=== PATIENT | female | born 1985 | race Two or more races ===

== ENCOUNTER → 2016-12-20 | Emergency (ER) | payer OTHER ==
[~2016-12-20] MED LIST: KETOROLAC TROMETHAMINE 60 MG/2 ML VIAL IM ONE; KETOROLAC TROMETHAMINE 60 MG/2 ML VIAL ONE
[2016-12-20 10:02] VITALS: BP 150/86; PULSE 101; TEMP 98.2; BMI 28.9
--- NOTE | 2016-12-20 10:44 | PDOC ---
History of Present Illness - History of Present Illness Initial Comments: 12/20/16 12:14 The patient is a 28 year old male, with a significant past medical history of PE (2 years ago after childbirth), who presents to the emergency department with a 3 month history of pins and needles to right thumb and first finger extending to elbow. She reports movement of her right shoulder, but denies pain with movement of her right elbow. She states shaking the right hand makes the tingling stop for a short period of time. She denies chest pain, shortness of breath, headache and dizziness. She denies fever, chills, nausea, vomit, diarrhea and constipation. She denies dysuria, frequency, urgency and hematuria. Allergies: NKDA <Joleen Garcia - Last Filed: 12/20/16 12:14> <Nirali Triplett - Last Filed: 12/20/16 12:51> - General Chief Complaint: Pain Stated Complaint: RT ARM NUMBNESS/hx PE Time Seen by Provider: 12/20/16 10:33 Past History <Joleen Garcia - Last Filed: 12/20/16 12:14> - Past Medical History Anemia: Yes Other medical history: PE - Immunization History Td Vaccination: No Immunization Up to Date: No - Suicide/Smoking/Psychosocial Hx Smoking History: Never smoked Number of Cigarettes Smoked Daily: 0 Information on smoking cessation initiated: No Hx Alcohol Use: No Drug/Substance Use Hx: No Substance Use Type: None <Nirali Triplett - Last Filed: 12/20/16 12:51> - Past Medical History Allergies/Adverse Reactions: Allergies Allergy/AdvReac Type Severity Reaction Status Date / Time No Known Allergies Allergy Verified 12/20/16 10:02 Home Medications: Ambulatory Orders Methocarbamol [Robaxin -] 500 mg PO TID PRN #30 tablet 12/12/14 Cyclobenzaprine HCl [Flexeril 10 mg] 10 mg PO BID PRN #10 tablet 12/20/16 Naproxen [Naprosyn -] 500 mg PO BID PRN #14 tablet 12/20/16 Review of Systems - Review of Systems Able to Perform ROS?: Yes Comments:: 12/20/16 12:14 GENERAL/CONSTITUTIONAL: No fever or chills. No weakness. HEAD, EYES, EARS, NOSE AND THROAT: No change in vision. No ear pain or discharge. No sore throat. GASTROINTESTINAL: No nausea, vomiting, diarrhea or constipation. GENITOURINARY: No dysuria, frequency, or change in urination. CARDIOVASCULAR: No chest pain or shortness of breath. RESPIRATORY: No cough, wheezing, or hemoptysis. MUSCULOSKELETAL: (+) pins and needles to right hand. No joint or muscle swelling or pain. No neck or back pain. SKIN: No rash NEUROLOGIC: (+) right hand numbness and tingling. No headache, vertigo, loss of consciousness, or change in strength ENDOCRINE: No increased thirst. No abnormal weight change. HEMATOLOGIC/LYMPHATIC: No anemia, easy bleeding, or history of blood clots. ALLERGIC/IMMUNOLOGIC: No hives or skin allergy. <Joleen Garcia - Last Filed: 12/20/16 12:14> *Physical Exam - Vital Signs Last Vital Signs Temp Pulse Resp BP Pulse Ox 98.2 F 101 H 19 150/86 100 12/20/16 10:00 12/20/16 10:00 12/20/16 10:00 12/20/16 10:00 12/20/16 10:00 - Physical Exam Comments: 12/20/16 12:16 Constitutional: Awake, alert, oriented. No acute distress. Head: Normocephalic. Atraumatic Eyes: PERRL. EOMI. Conjunctivae are not pale. ENT: Mucous membranes are moist and intact. Posterior pharynx without exudates or erythema. Uvula midline. Neck: Supple. Full ROM. No lymphadenopathy. Cardiovascular: Regular rate. Regular rhythm. S1, S2 regular. Distal pulses are 2+ and symmetric. Pulmonary/Chest: No evidence of respiratory distress. Clear to auscultation bilaterally No wheezing, rales or rhonchi. Abdominal: Soft and non-distended. There is no tenderness. No rebound, guarding or rigidity. No organomegaly. No palpable masses. Good bowel sounds. Back: No CVA tenderness. Musculoskeletal: (+) Mild ttp over tapping of the radial head of elbow. Finkelsteins Positive but negative phallens. 5/5 MS in all 4 extremities. Negative spurling's. No paraspinal or c spine tenderness. No edema. No cyanosis. No clubbing. Full range of motion in all extremities. Nocalf tenderness. Radial/pedal pulses are intact and 2+ bilaterally Skin: Skin is warm and dry. No petechiae. No purpura. Neurological: Alert and oriented to person, place, and time. Cranial nerves II -XII are grossly intact. Normal speech. Strength is grossly symmetric. No sensory deficits. Psychiatric: Good eye contact. Normal interaction, affect and behavior. <Joleen Garcia - Last Filed: 12/20/16 12:14> - Vital Signs Last Vital Signs Temp Pulse Resp BP Pulse Ox 98.2 F 101 H 19 150/86 100 12/20/16 10:00 12/20/16 10:00 12/20/16 10:00 12/20/16 10:00 12/20/16 10:00 <Nirali Triplett - Last Filed: 12/20/16 12:51> ED Treatment Course - ADDITIONAL ORDERS Additional order review: Laboratory Results 12/20/16 11:36 Urine HCG, Qual Negative - Medications Given in the ED: ED Medications Discontinued Medications Generic Name Dose Route Start Last Admin Trade Name Eden PRN Reason Stop Dose Admin Ketorolac Tromethamine 60 mg 12/20/16 10:44 12/20/16 11:27 Toradol Injection - IM 12/20/16 10:45 60 mg ONCE ONE Administration <Joleen Garcia - Last Filed: 12/20/16 12:14> - RADIOLOGY Radiology Studies Ordered: Category Date Time Status ELBOW-RIGHT [RAD] Stat Radiology 12/20/16 10:43 Ordered SPINE-CERVICAL [RAD] Stat Radiology 12/20/16 10:43 Ordered <Nirali Triplett - Last Filed: 12/20/16 12:51> Medical Decision Making - Medical Decision Making 12/20/16 10:45 a/p: 31yo female with intermittent R arm from elbow to thumb pins and needles x 3 months -suspect peripheral neuropathy and poss radial nerve entrapement -xray elbow and c spine -anti-inflamm -muscle relaxer -ortho follow up -IUD in place -reassess 12/20/16 12:51 upon re-eval, pt has eloped from the ED. Unable to go over imaging. Unable to d/ c from the ED. Pt walked out prior to discharge. <Nirali Triplett - Last Filed: 12/20/16 12:51> *DC/Admit/Observation/Transfer - Attestations Scribe Attestion: 12/20/16 12:18 Documentation prepared by Joleen Garcia, acting as registered medical transcriptionist for Nirali Triplett MD <Joleen Garcia - Last Filed: 12/20/16 12:14> - Attestations Physician Attestion: 12/20/16 12:51 I, Dr. Nirali Triplett, DO, attest that this document has been prepared under my direction and personally reviewed by me in its entirety. I further attest, that it accurately reflects all work, treatment, procedures and medical decision -making performed by me. <Nirali Triplett - Last Filed: 12/20/16 12:51> Diagnosis at time of Disposition: Peripheral neuropathic pain - Discharge Dispostion Disposition: ELOPED Condition at time of disposition: Unchanged/Unknown - Prescriptions Prescriptions: Cyclobenzaprine HCl [Flexeril 10 mg] 10 mg PO BID PRN #10 tablet PRN Reason: Muscle Spasms Naproxen [Naprosyn -] 500 mg PO BID PRN #14 tablet PRN Reason: Pain - Referrals Referrals: Babs Simmons NP [Primary Care Provider] -
== END | disposition left against medical advice (07) ==
LOC: JER 09:56
PROC: 3E0233Z Introduction of Anti-inflammatory into Muscle, Percutaneous Approach (ICD-10-PCS; principal; 2016-12-20)
DX: G58.8 Other specified mononeuropathies (principal); R20.2 Paresthesia of skin; Z86.711 Personal history of pulmonary embolism
CPT/HCPCS: 72050-TC; 73070-TC-RT; 84703; 96372; 99282-25